=== PATIENT | male | born 1950 | race Caucasian/White ===

== ENCOUNTER 2022-10-30 07:38 | Day surgery (SDC) | payer MEDICARE, OTHER, SELFPAY ==
[2022-10-24 12:54] VITALS: BMI 26.4
[2022-10-30] VITALS (7 sets, daily range): BP systolic 144–169; BP diastolic 64–71; PULSE 70–74; RESP 15–18; TEMP 35.9–36.3; O2SAT 93–97
[2022-10-30 08:23] LABS: POC Glucose,Bedside 187 (70-110)
== END 2022-10-30 08:58 | disposition home or self-care (01) ==
PROVIDERS: PCP Family Medicine; Visit Provider Ophthalmology
PROC: (CPT 66984; principal; 2022-10-30 10:30)
DX: E11.36 Type 2 diabetes mellitus with diabetic cataract (principal); H25.9 Unspecified age-related cataract; Z79.899 Other long term (current) drug therapy
CPT/HCPCS: 66984; 82962; V2632

== ENCOUNTER 2022-11-13 07:25 | Day surgery (SDC) | payer OTHER, SELFPAY ==
[2022-11-09 13:50] VITALS: BMI 26.4
[2022-11-13 08:54] VITALS: BP 107/59; PULSE 58; RESP 18; TEMP 36.6; O2SAT 99
[2022-11-13 09:46] VITALS: BP 173/75; PULSE 58; RESP 16; O2SAT 100
[2022-11-13 09:50] VITALS: BP 161/70; PULSE 62; RESP 16; O2SAT 100
[2022-11-13 09:55] VITALS: BP 153/69; PULSE 60; RESP 16; O2SAT 100
[2022-11-13 10:00] VITALS: BP 162/67; PULSE 59; RESP 16; O2SAT 100
[2022-11-13 10:10] VITALS: BP 133/76; PULSE 59; RESP 18; TEMP 36.3; O2SAT 99
[2022-11-13 13:20] LABS: POC Glucose,Bedside 165 (70-110)
== END 2022-11-13 10:30 | disposition home or self-care (01) ==
PROVIDERS: PCP Family Medicine; Visit Provider Ophthalmology
PROC: (CPT 66984; principal; 2022-11-13 10:30)
DX: E11.36 Type 2 diabetes mellitus with diabetic cataract (principal); H25.9 Unspecified age-related cataract
CPT/HCPCS: 66984; 82962; V2632